=== PATIENT | male | born 1995 | race Caucasian/White ===

== ENCOUNTER 2017-06-02 20:07 | Emergency (ER) | payer OTHER ==
[2017-06-02] MEDS: METOCLOPRAMIDE 10 MG TAB PO (22:15)
[2017-06-02] MEDS: KETOROLAC TROMETHAMINE 10 MG TAB PO (22:19)
== END 2017-06-02 22:42 | disposition home or self-care (01) ==
LOC: M ED 20:07
DX: G43.009 Migraine without aura, not intractable, without status migrainosus (principal); Z88.0 Allergy status to penicillin
CPT/HCPCS: 99283